=== PATIENT | female | born 1960 | race Caucasian/White ===

== ENCOUNTER 2017-03-15 13:10 | Emergency (ER) | payer MEDICARE, OTHER ==
[~2017-03-15] VITALS: Ht 160 cm; Wt 59.0 kg
[2017-03-15] MEDS ORDERED: LIDOCAINE HCL 1% 20 ML VIAL IJ ONE (14:30)
[2017-03-15] MEDS ORDERED: KETOROLAC TROMETHAMINE 30 MG INJ IM ONE (14:30)
--- NOTE | 2017-03-15 14:30 | NUR ---
Patient discharged to home in stable conditon. Written and verbal after care instructions given to patient. Patient verbalizes understanding of instructions.
[2017-03-15] MEDS ORDERED: LIDOCAINE HCL 1% 20 ML VIAL ONE (14:37)
[2017-03-15] MEDS ORDERED: KETOROLAC TROMETHAMINE 30 MG INJ ONE (14:37)
== END 2017-03-15 14:31 | disposition home or self-care (01) ==
LOC: ER 13:10
DX: G89.29 Other chronic pain (principal); M79.7 Fibromyalgia; Z88.1 Allergy status to other antibiotic agents
CPT/HCPCS: A4663; J1885; J3490

== ENCOUNTER 2017-06-07 06:55 | Emergency (ER) | payer MEDICARE ==
[~2017-06-07] VITALS: Ht 157.5 cm; Wt 57.6 kg
[2017-06-07] MEDS ORDERED: CLONAZEPAM 0.5 MG TABLET (07:12)
[2017-06-07] MEDS ORDERED: OXYCONTIN 10 MG (07:12)
[2017-06-07] MEDS: KETOROLAC TROMETHAMINE 60 MG INJ IM ONE (08:38)
[2017-06-07] MEDS ORDERED: KETOROLAC TROMETHAMINE 60 MG INJ IM ONE (08:48)
--- NOTE | 2017-06-07 09:00 | NUR ---
Patient is resting comfortably in bed with eyes closed, NAD noted.
[2017-06-07 09:39] VITALS: BP 136/84
--- NOTE | 2017-06-07 09:41 | NUR ---
Patient discharged to home in stable conditon. Written and verbal after care instructions given. Patient verbalizes understanding of instructions. left ER w/ steady gait
== END 2017-06-07 09:41 | disposition home or self-care (01) ==
LOC: ER 06:58
DX: M79.7 Fibromyalgia (principal); Z88.1 Allergy status to other antibiotic agents
CPT/HCPCS: 96372; 99283; A4663; J1885